=== PATIENT | female | born 1960 | race Native Hawaiian/Other Pacific Islander ===

== ENCOUNTER 2020-04-17 09:23 | Outpatient (CLI) | payer BC | END 2020-04-17 19:34 | disposition home or self-care (01) | LOC: RAD 09:23 | PROVIDERS: ATTEND Nurse Practitioner Family | DX: M06.4 Inflammatory polyarthropathy (principal) ==

== ENCOUNTER 2020-05-29 08:20 | Outpatient (CLI) | payer BC | END 2020-05-29 19:15 | disposition home or self-care (01) | LOC: MRI 08:20 | PROVIDERS: ATTEND Nurse Practitioner Family | DX: G80.8 Other cerebral palsy (principal); M06.4 Inflammatory polyarthropathy; M18.0 Bilateral primary osteoarthritis of first carpometacarpal joints; M19.041 Primary osteoarthritis, right hand; M19.042 Primary osteoarthritis, left hand; M79.7 Fibromyalgia; R76.0 Raised antibody titer; Z68.30 Body mass index [BMI] 30.0-30.9, adult; Z68.31 Body mass index [BMI] 31.0-31.9, adult ==